=== PATIENT | female | born 1950 | race Caucasian/White ===

== ENCOUNTER → 2022-03-22 | Outpatient (CLI) | payer OTHER ==
[~2022-03-22] VITALS: Ht 157.5 cm; Wt 59.0 kg
== END ==
LOC: OPSV 14:00
DX: M81.0 Age-related osteoporosis without current pathological fracture (principal)
CPT/HCPCS: 96365; J3489

== ENCOUNTER → 2022-03-30 | Outpatient (CLI) | payer OTHER | LOC: KOH-I 10:16 | DX: Z87.891 Personal history of nicotine dependence (principal); R91.8 Other nonspecific abnormal finding of lung field | CPT/HCPCS: 71271 ==